=== PATIENT | female | born 1970 | race Caucasian/White ===

== ENCOUNTER → 2020-10-24 | Outpatient (CLI) | payer BC ==
[~2020-10-24] MED LIST: DONNATAL1 TAB PO; PEPCID20 MG PO; VICODIN 5/500 505 MG PO
[2020-10-24 10:51] LABS: BASO % 0.6 % (0.0-1.0); EOS # 0.6 10*3/uL (0.0-0.4); HEMATOCRIT 42.8 % (37.0-47.0); LYMPH # 1.2 10*3/uL (1.3-4.4); LYMPH % 23.4 % (27.0-41.0); MEAN CELL VOLUME 91.8 fl (81.0-99.0); MEAN CORPUSCULAR HGB CONC 32.7 g/dl (33.0-37.0); MEAN PLATELET VOLUME 9.7 fl (9.6-12.3); MONO # 0.3 10*3/uL (0.1-1.0); MONO % 6.1 % (3.0-9.0); NEUT # 2.9 10*3/uL (2.3-7.9); NEUT % 57.7 % (47.0-73.0); PLATELET COUNT AUTOMATED 216 10*3/uL (130-400); RED BLOOD COUNT 4.66 10*6/uL (4.10-5.10); RED CELL DISTRI WIDTH 12.5 % (0-14.5); WHITE BLOOD COUNT 5.1 10*3/uL (4.8-10.8)
[2020-10-24 11:08] LABS: ALKALINE PHOSPHATASE 83 U/L (45-117); BUN 11 mg/dl (7-24); CHLORIDE 108 mmol/L (98-107); CHOLESTEROL 209 mg/dL (<200); CREATININE 0.99 mg/dL (0.55-1.02); HDL CHOLESTEROL 73 mg/dl (40-60); LDL CHOLESTEROL 118 mg/dL (9-159); POTASSIUM 4.5 mmol/L (3.5-5.1); SGOT/AST 18 IU/L (3-35); SGPT/ALT 23 U/L (12-78); SODIUM 141 mmol/L (136-145); TOTAL PROTEIN 7.3 gm/dL (6.4-8.2); TRIGLYCERIDES 90 mg/dl (<150); VLDL CHOLESTEROL 18 mg/dL (6-40)
[2020-10-24 11:16] LABS: THYROID STIM HORMONE (HS) 0.512 uIU/ml (0.358-4.75)
== END | disposition home or self-care (01) ==
LOC: LAB 10:23
PROVIDERS: ATTEND Family Medicine
DX: Z13.220 Encounter for screening for lipoid disorders (principal); R53.83 Other fatigue

== ENCOUNTER → 2024-02-24 | Outpatient (CLI) | payer BC ==
[2024-02-24 09:38] LABS: ALKALINE PHOSPHATASE 85 U/L (46-116); BUN 13 mg/dl (9-23); CHLORIDE 103 mmol/L (98-107); CHOLESTEROL 243 mg/dL (<200); FREE T4 1.32 ng/dl (0.89-1.76); LDL CHOLESTEROL 164 mg/dL (9-159); POTASSIUM 4.1 mmol/L (3.4-5.1); SGPT/ALT 20 U/L (5-49); TOTAL PROTEIN 7.3 gm/dL (6.0-8.0); TRIGLYCERIDES 102 mg/dl (<150)
[2024-02-24 10:09] LABS: VITAMIN D, 25-HYDROXY 51.7 ng/mL (30-100)
== END | disposition home or self-care (01) ==
LOC: LAB 08:16
PROVIDERS: ATTEND Internal Medicine
DX: I10 Essential (primary) hypertension (principal)